=== PATIENT | male | born 2000 | race Caucasian/White ===

== ENCOUNTER 2023-01-05 16:27 | Emergency (ER) | payer MEDICAID ==
[~2023-01-05] VITALS: Ht 177.8 cm; Wt 80.0 kg
[2023-01-05 16:32] VITALS: BP 136/75; PULSE 92; RESP 18; TEMP 98.2; O2SAT 99
[2023-01-05] MEDS ORDERED: SODIUM CHLORIDE 0.9% 1,000 ML IV ONE (16:45)
[2023-01-05] MEDS ORDERED: LEVETIRACETAM 500MG PREMIX 100 ML IV ONE (16:45)
[2023-01-05 17:14] LABS: BASOPHILS % 0.6 % (0.0-2.0); DIFFERENTIAL COMMENT 0; EOSINOPHILS % 2.7 % (0.0-5.0); HEMOGLOBIN. 14.6 g/dL (14.0-18.0); LYMPHOCYTES % 32.6 % (20.0-50.0); MEAN CORPUSCULAR HEMOGLOBIN 30.2 pg (28.0-32.0); MEAN CORPUSCULAR HGB CONC 33.2 g/dL (31.0-37.0); MEAN CORPUSCULAR VOLUME 91.1 fL (80.0-94.0); MEAN PLATELET VOLUME 9.1 fl (7.4-10.4); MONOCYTES % 11.3 % (2.0-8.0); NEUTROPHILS % 52.8 % (40.0-76.0); PLATELET 295 x1000/uL (130-400); RED BLOOD CELL COUNT 4.84 mill/uL (4.7-6.1); RED CELL DISTRIBUTION WIDTH 14.1 % (11.6-14.6); WHITE BLOOD COUNT 3.3 x1000/uL (4.5-11.0)
[2023-01-05 17:19] LABS: CHLORIDE 107 mEq/L (98-107); INDEX HEMOLYSI 1 (1-3); INDEX ICTERIC 1 (1-4); INDEX LIPEMIC 1 (1-3); POTASSIUM 4.2 mEq/L (3.5-5.1); SODIUM 137 mEq/L (136-145)
[2023-01-05 17:28] LABS: ALANINE AMINOTRANSFERASE 23 IU/L (13-61); ALBUMIN 4.1 g/dL (3.4-5.0); ASPARTATE AMINOTRANSFERASE 19 IU/L (15-37); BILIRUBIN TOTAL 0.5 mg/dL (0.1-1.0); CALCIUM 9.3 mg/dL (8.5-10.1); CARBON DIOXIDE 23 mEq/L (21-32); CREATININE 0.9 mg/dL (0.6-1.3); GLUCOSE 78 mg/dL (70-105); PROTEIN TOTAL 7.8 g/dL (6.0-8.3); UREA NITROGEN BLOOD 8 mg/dL (7-21)
[2023-01-05] MEDS ORDERED: KEPP500 MT (17:58)
== END 2023-01-05 18:50 | disposition home or self-care (01) ==
LOC: ER 16:27
DX: R56.9 Unspecified convulsions (principal)
CPT/HCPCS: 80053; 85025; 36415; 93005; 96365; 99284; J1953; J7030; Z7610 ×3

== ENCOUNTER 2023-04-12 08:46 | Emergency (ER) | payer SELFPAY ==
[~2023-04-12] VITALS: Ht 170.2 cm; Wt 63.0 kg
[~2023-04-12 08:46] MED LIST: KEPP500 MT
[2023-04-12 08:50] VITALS: TEMP 98.3; O2SAT 99
[2023-04-12] MEDS ORDERED: LEVETIRACETAM 500MG TABLET PO NR (09:15)
[2023-04-12] MEDS ORDERED: IBUPROFEN 600MG TABLET PO NR (09:15)
[2023-04-12] MEDS: SODIUM CHLORIDE 0.9% 1,000 ML IV NR ×2 (09:29→09:55)
[2023-04-12 09:58] VITALS: BP 120/69; PULSE 91; RESP 18
== END 2023-04-12 10:21 | disposition left against medical advice (07) ==
LOC: ER 08:46
DX: R56.9 Unspecified convulsions (principal); M25.512 Pain in left shoulder
CPT/HCPCS: 73030; 99283

== ENCOUNTER 2024-08-06 13:46 | Emergency (ER) | payer MEDICAID ==
[~2024-08-06] VITALS: Ht 177.8 cm; Wt 75.0 kg
[2024-08-06 13:47] VITALS: TEMP 36.7; O2SAT 98
[2024-08-06] MEDS: LEVETIRACETAM 1000MG PREMIX 100 ML IV ONE (14:25)
[2024-08-06 14:33] LABS: BASOPHILS % 0.5 % (0.0-2.0); CHLORIDE 105 mEq/L (98-107); DIFFERENTIAL COMMENT 0; EOSINOPHILS % 2.4 % (0.0-5.0); HEMATOCRIT. 45.5 % (42.0-52.0); HEMOGLOBIN. 15.5 g/dL (14.0-18.0); LYMPHOCYTES % 27.4 % (20.0-50.0); MEAN CORPUSCULAR HGB CONC 34.1 g/dL (31.0-37.0); MEAN CORPUSCULAR VOLUME 93.8 fL (80.0-94.0); MEAN PLATELET VOLUME 8.9 fl (7.4-10.4); NEUTROPHILS % 60.7 % (40.0-76.0); PLATELET 279 x1000/uL (130-400); POTASSIUM 4.8 mEq/L (3.5-5.1); RED BLOOD CELL COUNT 4.85 mill/uL (4.7-6.1); RED CELL DISTRIBUTION WIDTH 13.8 % (11.6-14.6); SODIUM 139 mEq/L (136-145); WHITE BLOOD COUNT 4.1 x1000/uL (4.5-11.0)
[2024-08-06 14:34] LABS: CARBON DIOXIDE 28 mEq/L (21-32)
[2024-08-06 14:35] LABS: CALCIUM 9.6 mg/dL (8.7-10.4)
[2024-08-06 14:39] LABS: GLUCOSE 94 mg/dL (70-105); UREA NITROGEN BLOOD 10 mg/dL (9-23)
[2024-08-06 14:51] LABS: ETHANOL BLOOD < 10 mg/dL (<10)
[2024-08-06] MEDS ORDERED: KEPP500 MT (17:40)
[2024-08-06 17:55] VITALS: BP 100/45; PULSE 69; RESP 12; O2SAT 96
== END 2024-08-06 18:01 | disposition home or self-care (01) ==
LOC: ER 13:46
DX: R56.9 Unspecified convulsions (principal); F12.90 Cannabis use, unspecified, uncomplicated; F11.90 Opioid use, unspecified, uncomplicated
CPT/HCPCS: 80048; 80320; 85025; 36415; 96374; 99284; J1953; G0480

== ENCOUNTER 2024-08-25 17:21 | Emergency (ER) | payer MEDICAID ==
[~2024-08-25] VITALS: Ht 177.8 cm; Wt 73.0 kg
[2024-08-25 17:22] VITALS: TEMP 36.7; O2SAT 100
[2024-08-25] MEDS: LEVETIRACETAM 500MG TABLET PO ONE (18:57)
[2024-08-25] MEDS: ACETAMINOPHEN 500MG TABLET PO ONE (18:57)
[2024-08-25 21:46] VITALS: BP 111/71; PULSE 65; RESP 19; O2SAT 100
== END 2024-08-25 21:47 | disposition home or self-care (01) ==
LOC: ER 17:21
DX: R56.9 Unspecified convulsions (principal); F12.90 Cannabis use, unspecified, uncomplicated; Z79.899 Other long term (current) drug therapy
CPT/HCPCS: 99284; Z7610; A4606

== ENCOUNTER 2025-01-24 03:12 | Emergency (ER) | payer OTHER, MEDICAID ==
[~2025-01-24] VITALS: Ht 177.8 cm; Wt 73.0 kg
[2025-01-24 03:31] VITALS: BP 118/82; PULSE 70; RESP 18; TEMP 36.8; O2SAT 100
[2025-01-24] MEDS ORDERED: OXYCODONE HCL/ACETAMINOPHEN 5/325MG TABLET PO ONE (07:45)
[2025-01-24] MEDS ORDERED: IBUPROFEN 600MG TABLET PO ONE (09:30)
[2025-01-24] MEDS: OXYCODONE HCL/ACETAMINOPHEN 5/325MG TABLET PO NR (13:10)
[2025-01-24] MEDS: IBUPROFEN 600MG TABLET PO NR (13:10)
== END 2025-01-24 13:15 | disposition home or self-care (01) ==
LOC: ER 03:12
DX: S02.2XXA Fracture of nasal bones, initial encounter for closed fracture (principal); S09.8XXA Other specified injuries of head, initial encounter; M25.512 Pain in left shoulder; F12.90 Cannabis use, unspecified, uncomplicated; V89.2XXA Person injured in unspecified motor-vehicle accident, traffic, initial encounter; Y92.410 Unspecified street and highway as the place of occurrence of the external cause; Y93.89 Activity, other specified; Y99.8 Other external cause status
CPT/HCPCS: 70486; 73030; 99284

== ENCOUNTER 2025-04-06 08:38 | Emergency (ER) | payer MEDICAID, OTHER ==
[~2025-04-06] VITALS: Ht 167.6 cm; Wt 66.0 kg
[2025-04-06 08:40] VITALS: TEMP 36.7; O2SAT 100
[2025-04-06] MEDS: LEVETIRACETAM 500MG/5ML CUP PO ONE (09:11)
[2025-04-06] MEDS: ONDANSETRON HCL 4MG TABLET PO ONE (09:11)
[2025-04-06] MEDS: LEVETIRACETAM 1000MG PREMIX 100 ML IV ONE (09:14)
[2025-04-06 12:19] VITALS: BP 105/60; PULSE 60; RESP 14; O2SAT 98
== END 2025-04-06 14:30 | disposition left against medical advice (07) ==
LOC: ER 09:01 → EDBEDREQTM 12:42 → EDBEDREQ 12:42 → CANBEDREQ 12:52 → ER 14:30
DX: R56.9 Unspecified convulsions (principal); F12.90 Cannabis use, unspecified, uncomplicated; Z79.899 Other long term (current) drug therapy
CPT/HCPCS: 99283; 93005; Q0162; J1953